=== PATIENT | female | born 1960 | race Caucasian/White ===

== ENCOUNTER 2023-05-12 09:27 | Emergency (ER) | payer MEDICAID ==
[~2023-05-12] VITALS: Ht 152.4 cm; Wt 40.0 kg
[2023-05-12 09:34] VITALS: TEMP 98.1
[2023-05-12 10:47] LABS: BASOPHILS % (AUTO) 0.2 % (0-1); EOSINOPHILS # (AUTO) 0.1 X10'3 (0-0.9); EOSINOPHILS % (AUTO) 0.6 % (0-6); HEMATOCRIT 44.9 % (35.0-45.0); LYMPHOCYTES # (AUTO) 2.9 X10'3 (1.1-4.8); LYMPHOCYTES % (AUTO) 26.6 % (21-51); MEAN CORPUSCULAR HEMOGLOBIN 31.1 PG (27.0-31.0); MEAN CORPUSCULAR HGB CONC 33.5 g/dL (33.0-36.5); MEAN CORPUSCULAR VOLUME 92.8 FL (78-98); MEAN PLATELET VOLUME 7.4 FL (7.4-10.4); MONOCYTES # (AUTO) 0.8 X10'3 (0-0.9); MONOCYTES % (AUTO) 7.1 % (2-12); NEUTROPHILS # (AUTO) 7.2 X10'3 (1.8-7.7); NEUTROPHILS % (AUTO) 65.5 % (42-75); PLATELET COUNT 387 X10'3 (140-440); RED BLOOD COUNT 4.83 X10'6 (4.20-5.60); RED CELL DISTRIBUTION WIDTH 15.4 % (11.5-14.5); WHITE BLOOD COUNT 10.9 X10'3 (4.5-11.0)
--- NOTE | 2023-05-12 11:02 | NUR ---
pt being evaluted in ED for left little toe turning black. Pt advised by oncology surgeon to come to ED for CT scan, pt needs to have surgery on left breat due to ductal carcinoma, needs to address toe prior to surgery clearance. Pt states her surgeon told her it may be due to circulation issue. Assessment and vitals done. Pt restting in bed awaiting provider
[2023-05-12 11:05] LABS: ALANINE AMINOTRANSFERASE 29 U/L (12-78); ALKALINE PHOSPHATASE 111 IU/L (46-116); ANION GAP 7 (8-16); ASPARTATE AMINO TRANSFERASE 19 U/L (10-37); BILIRUBIN,TOTAL 0.2 MG/DL (0.1-1.0); BLOOD UREA NITROGEN 19 MG/DL (7-18); BUN/CREATININE RATIO 22.9 (10.0-20.0); C-REACTIVE PROTEIN 0.23 MG/DL (0.0-0.5); CALCIUM 9.7 MG/DL (8.5-10.1); CHLORIDE 102 MMOL/L (99-107); CREATININE 0.83 MG/DL (0.40-0.90); GLUCOSE 108 MG/DL (70-104); POTASSIUM 3.5 MMOL/L (3.5-5.1); SODIUM 136 MMOL/L (135-145); TOTAL CARBON DIOXIDE 27.4 MMOL/L (24-32); TOTAL PROTEIN 8.1 G/DL (6.4-8.2); eCRCL 44 ML/MIN; eGFR 69 ML/MIN
[2023-05-12] MEDS ORDERED: heparin 25,000 UNIT/250ml bag 250 ML IV PRN (11:30)
[2023-05-12] MEDS ORDERED: heparin 10,000 units/1 ML INJ IV PRN (11:30)
[2023-05-12] MEDS ORDERED: heparin 10,000 units/1 ML INJ IV ONE (11:30)
[2023-05-12] MEDS ORDERED: iohexol 350MG/ML 100ml bottle IV ONE (11:34)
[2023-05-12] MEDS ORDERED: normal saline 1000ml 1,000 ML IV SCH (11:35)
[2023-05-12] MEDS ORDERED: ondansetron/PF 4mg/2ml inj IV ONE (12:25)
[2023-05-12] MEDS ORDERED: morphine 4 MG/ML inj SYRINge IV ONE ×2 (12:25→15:30)
[2023-05-12 12:56] LABS: APTT 27 SECONDS (22-32); PROTHROMBIN TIME 10.5 SECONDS (9.0-12.0)
[2023-05-12] MEDS ORDERED: enoxaparin 40mg/0.4ml syringe SUBCUT ONE ×2 (13:15→13:30)
[2023-05-12] MEDS ORDERED: ONDA-103 PO (15:40)
[2023-05-12 15:46] VITALS: RESP 16
[2023-05-12] MEDS ORDERED: TRAM50TA2 PO ×2 (15:47→15:48)
[2023-05-12 16:07] VITALS: BP 135/72; PULSE 72; O2SAT 97
== END 2023-05-12 16:10 | disposition home or self-care (01) ==
LOC: ER 09:28
DX: I73.9 Peripheral vascular disease, unspecified (principal); M79.672 Pain in left foot; K21.9 Gastro-esophageal reflux disease without esophagitis; G89.29 Other chronic pain; M54.9 Dorsalgia, unspecified; Z88.6 Allergy status to analgesic agent; Z88.5 Allergy status to narcotic agent
CPT/HCPCS: 36415; 71045; 73630; 75635; 80053; 83605; 84145; 85025; 85610; 85651; 85730; 86140; 87040; 93005; 93306; 96361; 96372; 96374; 96375; 96376; 99285; J1650; J2270; J2405; J3490; J7030; Q9967

== ENCOUNTER 2024-02-27 12:04 | Outpatient (CLI) | payer MEDICAID ==
[~2024-02-27 12:04] MED LIST: ONDA-103 PO
== END 2024-02-27 23:59 | disposition home or self-care (01) ==
LOC: MRI 12:04
PROVIDERS: ATTEND Nurse Practitioner
DX: M51.17 Intervertebral disc disorders with radiculopathy, lumbosacral region (principal); M48.07 Spinal stenosis, lumbosacral region; R20.9 Unspecified disturbances of skin sensation; M43.17 Spondylolisthesis, lumbosacral region; M46.1 Sacroiliitis, not elsewhere classified; M25.552 Pain in left hip
CPT/HCPCS: 72148; 73721

== ENCOUNTER 2024-05-23 09:48 | Emergency (ER) | payer MEDICAID ==
[~2024-05-23] VITALS: Ht 152.4 cm; Wt 46.4 kg
[2024-05-23 09:50] VITALS: TEMP 97
[2024-05-23] MEDS ORDERED: AMOX500C2 PO (11:41)
[2024-05-23] MEDS ORDERED: PRED5TAB PO (11:47)
[2024-05-23 12:02] VITALS: BP 144/72; PULSE 78; RESP 16; O2SAT 98
[2024-05-23] MEDS: amoxicillin 250mg capsule PO ONE (12:03)
[2024-05-23 12:17] LABS: STREP A SCREEN NEGATIVE (Neg)
== END 2024-05-23 12:05 | disposition home or self-care (01) ==
LOC: ER 09:48
DX: J02.9 Acute pharyngitis, unspecified (principal); H92.01 Otalgia, right ear; K21.9 Gastro-esophageal reflux disease without esophagitis; G89.29 Other chronic pain; Z88.5 Allergy status to narcotic agent; Z88.6 Allergy status to analgesic agent; Z79.2 Long term (current) use of antibiotics; Z79.899 Other long term (current) drug therapy; Z90.710 Acquired absence of both cervix and uterus
CPT/HCPCS: 87081; 87880; 99283